=== PATIENT | female | born 1960 | race Caucasian/White ===

== ENCOUNTER → 2021-01-24 | Outpatient (CLI) | payer BC ==
[~2021-01-24] MED LIST: NORCO 5-325 TA1 EACH PO
== END ==
LOC: US 01-13 09:45
DX: K76.0 Fatty (change of) liver, not elsewhere classified (principal)
CPT/HCPCS: 76700

== ENCOUNTER → 2021-08-01 | Outpatient (CLI) | payer BC | LOC: KOH-I 07-23 14:30 | DX: Z87.891 Personal history of nicotine dependence (principal) | CPT/HCPCS: 71271 ==

== ENCOUNTER → 2022-01-30 | Outpatient (CLI) | payer BC | LOC: KOH-I 01-23 08:45 | DX: K76.0 Fatty (change of) liver, not elsewhere classified (principal); Z90.49 Acquired absence of other specified parts of digestive tract; N27.1 Small kidney, bilateral | CPT/HCPCS: 76700 ==

== ENCOUNTER → 2022-06-26 | Outpatient (CLI) | payer BC | LOC: US 06-11 09:00 | DX: I10 Essential (primary) hypertension (principal) | CPT/HCPCS: 93975 ==